=== PATIENT | female | born 1985 | race Asian ===

== ENCOUNTER → 2017-06-10 | Outpatient (CLI) | payer BC ==
[2017-06-10 10:39] LABS: Basophils # (auto) 0.1 uL; Basophils % (auto) 0.4 % (0.0-2.0); Eosinophils # (auto) 0.1 uL; Eosinophils % (auto) 0.7 % (0.0-7.0); Hematocrit 40.1 % (36.0-46.0); Hemoglobin 13.5 g/dL (12.2-16.2); Lymphocytes # (auto) 2.5 uL; Lymphocytes % (auto) 19.8 % (10.0-50.0); Mean Corpuscular Hemoglobin 28.5 pg (28.0-32.0); Mean Corpuscular Hgb Conc. 33.7 g/dL (32.0-36.0); Mean Corpuscular Volume 84.6 fL (80.0-100.0); Monocytes # (auto) 0.6 uL; Monocytes % (auto) 4.5 % (0.0-12.0); Neutrophils # (auto) 9.6 uL; Neutrophils % (auto) 74.6 % (37.0-80.0); Nucleated Red Blood Cells % 0.1 %; Platelet Count (auto) 288 10^3/uL (140-450); Red Blood Cells 4.73 10^6/uL (4.0-5.20); Red Cell Distribution Width 14.2 % (11.8-14.3); White Blood Cell 12.9 10^3/uL (4.4-10.8)
[2017-06-10 12:57] LABS: Alcohol, Urine < 3.0 mg/dL (0-5); Amphetamine Screen, Urine NEGATIVE (NEGATIVE); Barbiturate Scree,Urine NEGATIVE (NEGATIVE); Benzodiazephine Screen, Urine NEGATIVE (NEGATIVE); Cannabinoid Screen, Urine NEGATIVE (NEGATIVE); Cocaine Screen, Urine NEGATIVE (NEGATIVE); Opiate Scree,Urine NEGATIVE (NEGATIVE); Phencyclidine Screen, Urine NEGATIVE (NEGATIVE)
[2017-06-11 04:07] LABS: RPR Non Reactive (Non Reactive)
== END | disposition home or self-care (01) ==
LOC: LAB 10:06
PROVIDERS: ATTEND Specialist
DX: Z34.80 Encounter for supervision of other normal pregnancy, unspecified trimester (principal); Z31.430 Encounter of female for testing for genetic disease carrier status for procreative management; Z20.2 Contact with and (suspected) exposure to infections with a predominantly sexual mode of transmission; Z3A.00 Weeks of gestation of pregnancy not specified
CPT/HCPCS: 36415; 80307; 81220; 83036; 85025; 86592; 86703; 86762; 86850; 86900; 86901; 87086; 87340

== ENCOUNTER 2017-08-08 03:31 | Observation (INO) | payer BC ==
[2017-08-08] MEDS ORDERED: TERBUTALINE SULFATE 1 MG/ML 1ML VIAL SC ONE (04:07)
[2017-08-08] MEDS ORDERED: TERBUTALINE SULFATE 1 MG/ML 1ML VIAL SC PRN (04:15)
[2017-08-08 04:18] LABS: Urine Bacteria FEW /hpf (None Seen); Urine Blood Negative /uL (Negative); Urine Mucus FEW (None Seen); Urine Specific Gravity 1.015 (1.001-1.035); Urine WBC 8 /hpf (0 - 5)
[2017-08-12] MEDS ORDERED: PREN27TA7 OR (02:19)
== END 2017-08-08 05:24 | disposition home or self-care (01) | DRG 781 ==
LOC: LDRP 03:31
PROVIDERS: ADMIT Specialist; ATTEND Specialist
DX: O26.893 Other specified pregnancy related conditions, third trimester (principal); R10.10 Upper abdominal pain, unspecified; O60.02 Preterm labor without delivery, second trimester; Z3A.26 26 weeks gestation of pregnancy
CPT/HCPCS: 59025; 81001; 81002; 96372; G0378; J3105; 96361; 96365; 96366

== ENCOUNTER → 2017-08-30 | Outpatient (CLI) | payer BC ==
[~2017-08-30] MED LIST: PREN27TA7 OR
[2017-08-30 09:44] LABS: Albumin 3.2 g/dL (3.4-5.0); BUN/Creatinine Ratio 17.1; Bilirubin, Total 0.3 mg/dL (0.2-1.0); Calcium 8.9 mg/dL (8.5-10.1); Potassium 4.3 mmol/L (3.5-5.1); Total Protein 7.6 g/dL (6.4-8.2)
== END | disposition home or self-care (01) ==
LOC: LAB 08:13
PROVIDERS: ATTEND Specialist
DX: O26.613 Liver and biliary tract disorders in pregnancy, third trimester (principal); Z3A.29 29 weeks gestation of pregnancy
CPT/HCPCS: 36415; 80053

== ENCOUNTER 2017-11-04 17:50 | Observation (INO) | payer BC | END 2017-11-04 19:13 | disposition home or self-care (01) | DRG 781 | LOC: LDRP 17:50 | PROVIDERS: ADMIT Obstetrics & Gynecology; ATTEND Obstetrics & Gynecology | DX: O62.9 Abnormality of forces of labor, unspecified (principal); O26.893 Other specified pregnancy related conditions, third trimester; R11.0 Nausea; N89.8 Other specified noninflammatory disorders of vagina; Z3A.39 39 weeks gestation of pregnancy | CPT/HCPCS: 59025; 81002; G0378 ==

== ENCOUNTER 2017-11-06 17:07 | Observation (INO) | payer BC | END 2017-11-06 20:27 | disposition home or self-care (01) | DRG 782 | LOC: LDRP 17:07 | PROVIDERS: ADMIT Obstetrics & Gynecology; ATTEND Obstetrics & Gynecology | DX: O42.92 Full-term premature rupture of membranes, unspecified as to length of time between rupture and onset of labor (principal); Z3A.39 39 weeks gestation of pregnancy | CPT/HCPCS: 59025; 76818; 81002; G0378 ==

== ENCOUNTER 2017-11-06 22:35 | Inpatient (IN) | payer BC ==
[~2017-11-06] VITALS: Ht 157.5 cm; Wt 71.2 kg
[2017-11-06] MEDS ORDERED: LACT. RINGERS/OXYTOCIN 20UNITS 1,000 ML IV SCH (22:42)
[2017-11-06] MEDS ORDERED: LACTATED RINGER'S 1,000 ML IV SCH (22:42)
[2017-11-06] MEDS ORDERED: LIDOCAINE 2% (LOCAL ANESTH.) PF 5ml SDV ID ONE (22:45)
[2017-11-06] MEDS ORDERED: NALBUPHINE HCL 10 MG/1ml INJECTION IV PRN (22:45)
[2017-11-06] MEDS ORDERED: WITCH HAZEL-GLYCERIN PAD TOP PRN (22:45)
[2017-11-06] MEDS ORDERED: METHYLERGONOVINE MALEATE 0.2 MG/ML AMP IM PRN (22:45)
[2017-11-06] MEDS ORDERED: DERMOPLAST 60ML BOTTLE TOP PRN (22:45)
[2017-11-06] MEDS ORDERED: PHISODERM TOP SOLN 240ML BTL TOP PRN (22:45)
[2017-11-06] MEDS ORDERED: PROMETHAZINE HCL 25 MG/ML 1ML IV PRN (22:45)
[2017-11-06 23:19] LABS: Basophils # (auto) 0.1 uL; Basophils % (auto) 0.5 % (0.0-2.0); Eosinophils # (auto) 0 uL; Eosinophils % (auto) 0.2 % (0.0-7.0); Hematocrit 38.7 % (36.0-46.0); Hemoglobin 13.2 g/dL (12.2-16.2); Lymphocytes # (auto) 2.3 uL; Lymphocytes % (auto) 14.1 % (10.0-50.0); Mean Corpuscular Hemoglobin 28.8 pg (28.0-32.0); Mean Corpuscular Hgb Conc. 34.1 g/dL (32.0-36.0); Mean Corpuscular Volume 84.4 fL (80.0-100.0); Monocytes # (auto) 0.9 uL; Monocytes % (auto) 5.5 % (0.0-12.0); Neutrophils # (auto) 13.1 uL; Neutrophils % (auto) 79.7 % (37.0-80.0); Platelet Count (auto) 195 10^3/uL (140-450); Red Blood Cells 4.58 10^6/uL (4.0-5.20); White Blood Cell 16.5 10^3/uL (4.4-10.8)
[2017-11-06 23:33] LABS: INR 0.9 (0.9-1.15); Partial Thromboplastin Time 25.7 sec (23.78-33.04); Prothrombin Time 9.7 sec (9.27-12.13)
[2017-11-06 23:36] LABS: Albumin 2.8 g/dL (3.4-5.0); BUN/Creatinine Ratio 8.3; Calcium 8.5 mg/dL (8.5-10.1); Potassium 3.6 mmol/L (3.5-5.1)
[2017-11-06 23:39] LABS: Bilirubin, Total 0.4 mg/dL (0.2-1.0)
[2017-11-06] MEDS ORDERED: GENTAMICIN SULF 80 MG/2 ML VIAL ONE (23:41)
[2017-11-06] MEDS ORDERED: GENTAMICIN SULFATE IV ONE (23:45)
[2017-11-06] MEDS ORDERED: SODIUM CHL 0.9% IV ONE (23:45)
[2017-11-07] MEDS ORDERED: AMPICILLIN SOD 2GM INJ 2 GM in SODIUM CHL 0.9% 100 ML IV SCH ×2
[2017-11-07] MEDS ORDERED: BUTORPHANOL TARTRATE 2 MG/1 ML VIAL IM PRN
[2017-11-07] MEDS ORDERED: BUTORPHANOL TARTRATE 2 MG/1 ML VIAL ONE (00:01)
[2017-11-07] MEDS ORDERED: AMPICILLIN SOD 1 GM VL ONE (00:53)
[2017-11-07] MEDS ORDERED: ACETAMINOPHEN 325 MG TAB PO PRN (03:00)
[2017-11-07] MEDS ORDERED: LACT. RINGERS/OXYTOCIN 20UNITS 500 ML IV ONE (03:00)
[2017-11-07] MEDS: IBUPROFEN 600 MG TAB PO PRN ×2 (04:50→07:33)
[2017-11-07 07:02] VITALS: BP 116/65
[2017-11-07] MEDS: DOCUSATE SOD 100 MG CAP PO SCH ×2 (10:30→22:08)
[2017-11-07 10:58] VITALS: BP 99/57
[2017-11-07 15:00] VITALS: BP 112/62
[2017-11-07 18:59] VITALS: BP 116/76
[2017-11-07 23:00] VITALS: BP 111/72
[2017-11-08 03:05] VITALS: BP 101/59
[2017-11-08 03:06] LABS: RPR Non Reactive (Non Reactive)
[2017-11-08 07:00] VITALS: BP 108/62
[2017-11-08] MEDS: IBUPROFEN 600 MG TAB PO PRN (07:49)
== END 2017-11-08 10:30 | disposition home or self-care (01) | DRG 774 ==
LOC: LDRP 22:35 → OBSVTOIN 22:35 → LDRP 11-07 04:36
PROVIDERS: ADMIT Obstetrics & Gynecology; ATTEND Obstetrics & Gynecology
PROC: 10E0XZZ Delivery of Products of Conception, External Approach (ICD-10-PCS; principal; 2017-11-07)
PROC: 0KQM0ZZ Repair Perineum Muscle, Open Approach (ICD-10-PCS; 2017-11-07)
PROC: 10907ZC Drainage of Amniotic Fluid, Therapeutic from Products of Conception, Via Natural or Artificial Opening (ICD-10-PCS; 2017-11-07)
DX: O99.42 Diseases of the circulatory system complicating childbirth (principal); O70.1 Second degree perineal laceration during delivery; I34.0 Nonrheumatic mitral (valve) insufficiency; Z37.0 Single live birth; Z3A.39 39 weeks gestation of pregnancy; Z83.3 Family history of diabetes mellitus
CPT/HCPCS: 36415; 59025; 59409; 80053; 85025; 85610; 85730; 86592; 86850; 86900; 86901; 96365; 96366; 96375; J2001; J2590

== ENCOUNTER → 2017-12-19 | Outpatient (CLI) | payer BC | END | disposition home or self-care (01) | LOC: LAB 16:17 | PROVIDERS: ATTEND Specialist | DX: N76.0 Acute vaginitis (principal) | CPT/HCPCS: 87070 ==

== ENCOUNTER 2018-06-18 05:56 | Inpatient (IN) | payer BC ==
[~2018-06-18] VITALS: Ht 157.5 cm; Wt 72.1 kg
[2018-06-18 07:04] LABS: Urine WBC None Seen /hpf (0 - 5)
[2018-06-18 07:10] LABS: Basophils # (auto) 0 uL; Basophils % (auto) 0.5 % (0.0-2.0); Eosinophils # (auto) 0.2 uL; Eosinophils % (auto) 1.5 % (0.0-7.0); Hematocrit 45.8 % (36.0-46.0); Hemoglobin 15.4 g/dL (12.2-16.2); Lymphocytes # (auto) 2.3 uL; Lymphocytes % (auto) 23.1 % (10.0-50.0); Mean Corpuscular Hemoglobin 27.9 pg (28.0-32.0); Mean Corpuscular Hgb Conc. 33.7 g/dL (32.0-36.0); Mean Corpuscular Volume 82.7 fL (80.0-100.0); Monocytes # (auto) 0.5 uL; Monocytes % (auto) 5.1 % (0.0-12.0); Neutrophils # (auto) 6.9 uL; Neutrophils % (auto) 69.8 % (37.0-80.0); Nucleated Red Blood Cells % 0.1 %; Platelet Count (auto) 291 10^3/uL (140-450); Red Blood Cells 5.54 10^6/uL (4.0-5.20); Red Cell Distribution Width 13.7 % (11.8-14.3); White Blood Cell 9.9 10^3/uL (4.4-10.8)
[2018-06-18 07:28] LABS: Albumin 4.5 g/dL (3.4-5.0); BUN/Creatinine Ratio 24.6; Calcium 9.5 mg/dL (8.5-10.1); Magnesium 2.7 mg/dL (1.6-2.6); Potassium 3.4 mmol/L (3.5-5.1)
[2018-06-18 07:31] LABS: Bilirubin, Total 0.4 mg/dL (0.2-1.0); Total Protein 9.2 g/dL (6.4-8.2)
[2018-06-18 07:54] LABS: Urine Bacteria NONE SEEN /hpf (None Seen); Urine Blood Negative /uL (Negative); Urine Hyaline Cast FEW /lpf (0 - 2); Urine Mucus FEW (None Seen); Urine Specific Gravity 1.027 (1.001-1.035)
[2018-06-18] MEDS ORDERED: SODIUM CHLORIDE 0.9% 1,000 ML IV ONE (07:56)
[2018-06-18] MEDS ORDERED: KETOROLAC TROMETH 30 MG/ML 1ML VIAL IV ONE (08:00)
[2018-06-18] MEDS ORDERED: DONNATAL 5ml ORAL Elix (BELLADONNA ALK-PHENOBARB) PO ONE (08:00)
[2018-06-18] MEDS ORDERED: PROMETHAZINE HCL 25 MG/ML 1ML IV PRN (08:00)
[2018-06-18] MEDS ORDERED: HYDROcodone-ACET 5/325MG TAB PO PRN (11:15)
[2018-06-18] MEDS ORDERED: ONDANSETRON HCL 4 MG/2 ML VIAL IV PRN (11:15)
[2018-06-18] MEDS ORDERED: MORPHINE SULF INJ 2 MG/ML SYRINGE 1ML IV PRN (11:15)
[2018-06-18 12:14] LABS: INR 0.95 (0.9-1.15); Partial Thromboplastin Time 27.7 sec (23.78-33.04); Prothrombin Time 10.2 sec (9.27-12.13)
[2018-06-18] MEDS: D5W/SOD CHL 0.45%/KCL 20MEQ 1,000 ML IV SCH ×3 (12:18→22:30)
[2018-06-18 13:50] VITALS: BP 147/88
--- NOTE | 2018-06-18 13:50 | NUR ---
[facility] admit from ER [facility] admitted to [facility] after SBAR received. Patient oriented to Jerri Dickinson, primary RN, unit, room, bed, and unit policies regarding patient care and visiting hours. Patient weighed by bedscale and encouraged to call if they need something. All questions and concerns addressed, patient verbalized understanding. No s/s of distress or sob noted. Pt denies nicole. Will cont care
[2018-06-18 15:27] VITALS: BP 147/88
[2018-06-18 16:46] VITALS: BP 167/80
[2018-06-18 16:50] VITALS: BP 121/76
--- NOTE | 2018-06-18 19:10 | NUR ---
Patient care endorsed endorsed care to Cyndi hall
--- NOTE | 2018-06-18 19:15 | NUR ---
ASSUMED CARE, PT. AWAKE, NO C/O PAIN, NO SOB.
[2018-06-18 22:00] VITALS: BP 125/76
[2018-06-19 00:12] VITALS: BP 119/49
[2018-06-19] MEDS: D5W/SOD CHL 0.45%/KCL 20MEQ 1,000 ML IV SCH (00:46)
[2018-06-19 04:41] VITALS: BP 104/65
--- NOTE | 2018-06-19 06:54 | NUR ---
V/S STABLE, NPO MAINTAINED, NOT IN DISTRESS.
[2018-06-19 08:53] LABS: Basophils # (auto) 0 uL; Basophils % (auto) 0.7 % (0.0-2.0); Eosinophils # (auto) 0.1 uL; Eosinophils % (auto) 1.6 % (0.0-7.0); Hematocrit 45.3 % (36.0-46.0); Hemoglobin 15.2 g/dL (12.2-16.2); Lymphocytes # (auto) 2.2 uL; Mean Corpuscular Hgb Conc. 33.6 g/dL (32.0-36.0); Mean Corpuscular Volume 83.4 fL (80.0-100.0); Monocytes # (auto) 0.5 uL; Monocytes % (auto) 8.4 % (0.0-12.0); Neutrophils # (auto) 3.6 uL; Neutrophils % (auto) 55.3 % (37.0-80.0); Nucleated Red Blood Cells % 0.1 %; Platelet Count (auto) 289 10^3/uL (140-450); Red Blood Cells 5.43 10^6/uL (4.0-5.20); Red Cell Distribution Width 14.1 % (11.8-14.3); White Blood Cell 6.4 10^3/uL (4.4-10.8)
[2018-06-19 09:05] VITALS: BP 117/81
[2018-06-19 09:05] LABS: Albumin 4.1 g/dL (3.4-5.0); BUN/Creatinine Ratio 20.4; Calcium 8.7 mg/dL (8.5-10.1); Potassium 3.8 mmol/L (3.5-5.1)
[2018-06-19 09:08] LABS: Bilirubin, Total 0.6 mg/dL (0.2-1.0); Total Protein 8.4 g/dL (6.4-8.2)
[2018-06-19] MEDS ORDERED: ROCURONIUM 10MG/ML 10ML VIAL IV ONE (09:08)
[2018-06-19] MEDS ORDERED: KETOROLAC TROMETH 60MG/2ML VIAL IM ONE (09:08)
[2018-06-19] MEDS ORDERED: ceFAZolin 1GM/50ML 50 ML IV ONE (09:08)
[2018-06-19] MEDS ORDERED: SODIUM CHLORIDE LOCK 10 ML ONE (09:08)
[2018-06-19] MEDS ORDERED: fentaNYL CITRATE 100 MCG/2 ML VL ONE (09:08)
[2018-06-19] MEDS ORDERED: ONDANSETRON HCL 4 MG/2 ML VIAL ONE (09:08)
[2018-06-19] MEDS ORDERED: MEPERIDINE HCL (50 MG/ML) 1 ML VIAL ONE (09:08)
[2018-06-19] MEDS ORDERED: METOCLOPRAMIDE HCL 5MG/ml INJ 2ml VIAL ONE (09:08)
[2018-06-19] MEDS ORDERED: PROPOFOL 10 MG/ML 20 ML IV ONE (09:09)
--- NOTE | 2018-06-19 09:15 | NUR ---
Patient was taken to pre-op via bed, no signs of distress noted.
[2018-06-19] MEDS ORDERED: POVIDONE IODINE 10 % TOPICAL OINT 30GM TOP ONE (09:50)
[2018-06-19] MEDS: KETOROLAC TROMETH 30 MG/ML 1ML VIAL IV ONE ×2 (10:00→12:43)
[2018-06-19] MEDS ORDERED: METOCLOPRAMIDE HCL 5MG/ml INJ 2ml VIAL IV ONE (10:00)
[2018-06-19] MEDS ORDERED: MIDAZOLAM HCL 1MG/1ML-2 ML VIAL ONE (10:48)
[2018-06-19] MEDS ORDERED: NEOSTIGMINE 1 MG/ML INJ (10mg/10ML VIAL) ONE (11:27)
[2018-06-19] MEDS ORDERED: GLYCOPYRROLATE 0.2 MG/ML 1ML VIAL ONE (11:27)
[2018-06-19] MEDS ORDERED: cefTRIAXone 1GM/50ML D5W 50 ML IV ONE (11:45)
[2018-06-19] MEDS ORDERED: PANTOPRAZOLE 40 MG/10 ML VIAL IV ONE (11:45)
[2018-06-19] MEDS: HYDROmorphone HCL 2 MG/ML VL IV PRN ×2 (12:33→12:43)
--- NOTE | 2018-06-19 13:40 | NUR ---
Covering nurse, Gwendolyn, informed me that patient is back in her room. Checked on patient: patient is asleep, no signs of distress noted.
[2018-06-19] MEDS: metroNIDAZOLE 500MG/100ML 100 ML IV SCH ×2 (16:06→21:57)
[2018-06-19 16:34] VITALS: BP 127/90
--- NOTE | 2018-06-19 18:00 | NUR ---
Paged Dr. Quiles re: Heart rate of 130's-140's.
--- NOTE | 2018-06-19 19:05 | NUR ---
Opening Note Received change of shift report from day shift RN. Patient is awake, alert and oriented x4. No signs or symptoms of distress noted at this time. Patient states abdominal pain, patient refusing pain medication at this time. Reviewed plan of care with patient, patient verbalized understanding. Bed in lowest and locked position, call light within reach. Will continue to monitor Q1 hour and PRN.
--- NOTE | 2018-06-19 19:20 | NUR ---
Repaged Dr. Quiles re: heart rate 130's-140's. summer RN informed.
[2018-06-19] MEDS: ACETAMINOPHEN 500 MG TAB PO PRN (20:59)
--- NOTE | 2018-06-19 21:50 | NUR ---
Patient ambulated Patient ambulated in [place] with standby assistance. Patient had a steady gait. Patient tolerated well. Will continue to monitor Q1 hour and PRN.
[2018-06-19 22:00] VITALS: BP 126/82
[2018-06-20] MEDS: D5W/SOD CHL 0.45%/KCL 20MEQ 1,000 ML IV SCH ×2 (03:15→11:23)
[2018-06-20] MEDS: ACETAMINOPHEN 500 MG TAB PO PRN (05:33)
[2018-06-20] MEDS: metroNIDAZOLE 500MG/100ML 100 ML IV SCH ×3 (05:33→21:59)
[2018-06-20 05:38] VITALS: BP 126/85
[2018-06-20 08:41] VITALS: BP 127/83
[2018-06-20] MEDS: PANTOPRAZOLE 40 MG/10 ML VIAL IV SCH (09:45)
[2018-06-20] MEDS: cefTRIAXone 1GM/50ML D5W 50 ML IV SCH (09:45)
--- NOTE | 2018-06-20 09:53 | NUR ---
CHAPERONED DR. BARRERA INTO PTS ROOM
--- NOTE | 2018-06-20 11:27 | NUR ---
Nutrition Assessment Notes Please see attached link for complete assessment Est. Needs BW [id number] kcal (23-25 kcal/kgBW), 71-77 gms pro (1.0-1.1 gms/kgBW). Will continue to monitor pertinent labs and reassess nutrient needs prn Addendum: 06/20/18 at [address] Amended: Links added.
[2018-06-20 13:00] VITALS: BP 122/88
[2018-06-20 17:00] VITALS: BP 119/89
--- NOTE | 2018-06-20 19:25 | NUR ---
Opening Note Received change of shift report from day shift RN. Patient is awake, alert and oriented x4. No signs or symptoms of distress noted at this time. Patient state she is having abdominal pain, patient refusing pain medications at this time. Reviewed plan of care with patient, patient verbalized understanding. Bed in lowest and locked position, call light within reach. Will continue to monitor Q1 hour and PRN.
[2018-06-20 21:00] VITALS: BP 117/70
[2018-06-21] MEDS: D5W/SOD CHL 0.45%/KCL 20MEQ 1,000 ML IV SCH (03:30)
[2018-06-21 05:05] VITALS: BP 125/84
[2018-06-21] MEDS: metroNIDAZOLE 500MG/100ML 100 ML IV SCH (05:26)
--- NOTE | 2018-06-21 07:35 | NUR ---
Closing Note Report given to day shift RN. No signs or symptoms of distress noted at this time.
--- NOTE | 2018-06-21 08:00 | NUR ---
Opening Shift Note Assumed care of patient, awake, alert and oriented X4. No S/S of distress/SOB, complains of abdominal pain, /, refused pain medication.Tele# 12, sinus rhythm @ 83 bpm. IV to right hand, 20 gauge, patent and infusing D5W with 0.45% NS with 20 meq KCL @ 100 ml/hr. Abdominal incisions X3 with dressings changed. Abdominal binder in place. Instructed on POC and to call for assist PRN, verbalized understanding. Bed locked, in lowest position, call light within reach, will continue to monitor for changes Q1hr and PRN.
[2018-06-21 09:00] VITALS: BP 116/79
--- NOTE | 2018-06-21 10:15 | NUR ---
ROUNDS Dr Kelvin Coon at bedside for rounds, new orders received and followed through. Patient updated on plan of care, verbalized understanding.
[2018-06-21] MEDS: cefTRIAXone 1GM/50ML D5W 50 ML IV SCH (11:09)
[2018-06-21] MEDS: PANTOPRAZOLE 40 MG/10 ML VIAL IV SCH (11:09)
[2018-06-21 12:58] VITALS: BP 131/82
== END 2018-06-21 13:10 | disposition home or self-care (01) | DRG 419 ==
LOC: ER 05:56 → OVERFLOW 11:00 → WEST WING 13:39 → TELE-WESTW 06-20 07:05
PROVIDERS: ADMIT Nurse Practitioner Acute Care; ATTEND Family Medicine
PROC: 3E0G3GC Introduction of Other Therapeutic Substance into Upper GI, Percutaneous Approach (ICD-10-PCS; 2018-06-19)
PROC: 0FT44ZZ Resection of Gallbladder, Percutaneous Endoscopic Approach (ICD-10-PCS; principal; 2018-06-19 10:57)
DX: K80.00 Calculus of gallbladder with acute cholecystitis without obstruction (principal); E87.6 Hypokalemia; E86.0 Dehydration
CPT/HCPCS: 36415; 76705; 80053; 81001; 81025; 82150; 82247; 83690; 83735; 85025; 85610; 85730; 86850; 86900; 86901; 96361; 96374; 96375; A6257; C9113; G0378; J0690; J0696; J1885; J2250; J2405; J2704; J3490

== ENCOUNTER → 2018-10-02 | Outpatient (CLI) | payer BC | END | disposition home or self-care (01) | LOC: CARD WEST 09:32 | PROVIDERS: ATTEND Internal Medicine Cardiovascular Disease | DX: R00.2 Palpitations (principal) | CPT/HCPCS: 93306 ==